=== PATIENT | male | born 1945 | race Caucasian/White ===

== ENCOUNTER 2018-07-04 17:59 | Emergency (ER) | payer BC ==
--- OUTSIDE RECORDS SUMMARY | 2018-07-04 18:04 | XMS REPORT ---
:1945 External Reference #:[id number] Author Organization [facility] Address [address] [place] [address] Phone [phone] Care Team Providers Name Role Phone Mark Baez MD Care Team Information Shaker Screen Operator Unavailable Mark Baez MD Primary Care Physician Unavailable Payers Type Date Identification Numbers Payment Provider Subscriber Commercial Effective: Policy Number: [id number] [employer] Plan Reyna Repp 2010 PayID: [id number] [address] [place] [address] Problems Description No Active Problems Family History Date Family Member(s) Problem(s) Comments Onset: (age 60 Years) Father Colon Cancer Social History Type Date Description Comments Living Situation Lives with spouse ETOH Use Rare Smoking Patient has never smoked Daily Caffeine Daily Caffeine Allergies, Adverse Reactions, Alerts Date Description Reaction Status Severity Comments 05/24/2011 NKDA active 10/17/2008 Wasps active Medications Medication Date Status Form Strength Qnty SIG Indications Ordering Provider Doxazosin 06/19/ Active Tablets 1mg 30tabs Take one N40.0 Liya C. Mesylate 2017 by mouth David, daily [employer] Finasteride 01/24/ Active Tablets 5mg 30tabs take 1 Liya C. 2016 tablet by David, mouth at [employer] bedtime Epipen 2-[place] 03/14/ Active Solution 0.3mg/0.3M 1units as Liya C. 2015 Auto-Injec L directed David t [employer] No Active 09/29/ Hx Unknown Medications 2014 - 2015 No Active 08/25/ Hx Unknown Medications 2012 - 2013 Levofloxacin 08/20/ Hx Tablets 500mg 5tabs 1 po qd 597.80 Mark Omar 2012 - Darlow, 08/25/ M.D. 2012 No Active 08/17/ Hx Unknown Medications 2012 - 2012 Levofloxacin 08/12/ Hx Tablets 500mg 5tabs 1 po qd 597.80 Mark AMigel 2012 - Darmanny, 08/17/ M.D. 2012 No Active 05/30/ Hx Unknown Medications 2010 - 2012 Amoxicillin/Cl 10/25/ Hx Tablets 500-125mg 20tabs 1 po bid 473.0 Torito willis 2010 - Anand Landeros Potassium 2010 Medrol Dosepak 10/25/ Hx Tablets 4mg 1tabs use as 473.0 Torito Nelson 2011 - directed Anand Landeros 2010 Robitussin A-C 10/03/ Hx 5Oz 1-2 tsp Leonardo Burciaga 2010 - po q4h Breiman, 10/25/ prn cough M.DMigel 2010 Fish Oil 10/17/ Hx Capsules 1000mg 1 po qd Family 2009 - Medicine 07/26/ [facility] 2010 [facility] [place] Zithromax 10/17/ Hx Tablets 250mg 6Tabs 2 po qd 466.0 Leonardo Burciaga 2008 - today , Sailaja, 10/25/ then 1 po M.D. 2010 qd times 4 Note 03/29/ Hx PT needs Miko Martinez 2004 - a ncv due Anastasiya, 10/17/ to hand M.Katja 2008 pain-r/o carpal tunnel Pen VK 12/25/ Hx Tablets 500mg 40tabs 1 qid Mark Nelson 2002 - Sasha, 01/04/ Anand 2002 Viagara 12/01/ Hx 50mg 6units 1 Tab One Miko Martinez 2002 - Half Hour Anastasiya, 10/17/ Before M.DMigel 2009 Intercour se. Caleb MD Anne 10/25/ Hx For Miko Martinez 2001 - Cardiac Anastasiya, 12/01/ Anand Parish 2002 Weight Control [email or web address] [employer] The Web Site Ibuprofen / Hx Capsules 200mg prn Unknown 0000 - 2010 Ofloxacin / Hx Solution 0.3% 2 gtts Unknown Ophthalmic 0000 - q4hrs 2014 Immunizations CPT Code Status Date Vaccine Lot # [id number] Given 09/28/2015 Pneumococcal Conjugate Vacc-13 [id number] Given 09/29/2014 Influenza Vac, Quadrivalent, Slit Virus, Im [id number] Given 06/28/2012 DO Not Use Split Influenza Virus Vaccine [id number] Given 04/19/2011 Tetanus And Diptheria Adult Preservative Free [id number] >[id number] [id number] Given 11/01/2010 Zostivax [id number] Vital Signs Date Vital Result Comment 06/19/2018 BP Systolic 144 mmHg BP Diastolic 80 mmHg Heart Rate 72 /min Respiratory Rate 16 /min Height 69.5 inches 5'9.50" Weight 229.00 lb BMI (Body Mass Index) 33.3 kg/m2 12/25/2016 BP Systolic 162 mmHg BP Diastolic 102 mmHg Heart Rate 72 /min Body Temperature 98.7 F Respiratory Rate 16 /min Height 69.5 inches 5'9.50" Weight 237.00 lb BMI (Body Mass Index) 34.5 kg/m2 06/22/2016 BP Systolic 146 mmHg BP Diastolic 88 mmHg Heart Rate 78 /min Body Temperature 97.9 F Height 69.5 inches 5'9.50" Weight 233.50 lb BMI (Body Mass Index) 34.0 kg/m2 09/28/2015 BP Systolic 144 mmHg BP Diastolic 88 mmHg Heart Rate 68 /min Body Temperature 97.5 F Respiratory Rate 18 /min Height 69.5 inches 5'9.50" Weight 236.00 lb BMI (Body Mass Index) 34.3 kg/m2 09/29/2014 BP Systolic 162 mmHg BP Diastolic 88 mmHg Heart Rate 68 /min Body Temperature 97.4 F Respiratory Rate 18 /min Height 69.5 inches 5'9.50" Weight 231.00 lb BMI (Body Mass Index) 33.6 kg/m2 01/19/2014 BP Systolic 148 mmHg BP Diastolic 82 mmHg Heart Rate 68 /min Body Temperature 98.0 F Respiratory Rate 16 /min Height 69.5 inches 5'9.50" Weight 229.50 lb BMI (Body Mass Index) 33.4 kg/m2 01/01/2014 BP Systolic 118 mmHg BP Diastolic 64 mmHg Heart Rate 72 /min Body Temperature 98.3 F Respiratory Rate 16 /min Height 69.5 inches 5'9.50" Weight 237.50 lb BMI (Body Mass Index) 34.6 kg/m2 Right Visual Acuity Distance 20/25 Left Visual Acuity Distance 20/25 08/12/2013 BP Systolic 128 mmHg BP Diastolic 84 mmHg Heart Rate 64 /min Body Temperature 97.9 F Respiratory Rate 16 /min Height 69.5 inches 5'9.50" Weight 248.00 lb BMI (Body Mass Index) 36.1 kg/m2 05/30/2011 BP Systolic 112 mmHg BP Diastolic 78 mmHg Heart Rate 64 /min Body Temperature 97.9 F Height 69.5 inches 5'9.50" Weight 250.00 lb BMI (Body Mass Index) 36.4 kg/m2 11/22/2010 BP Systolic 120 mmHg BP Diastolic 80 mmHg Heart Rate 72 /min Body Temperature 98.6 F Height 69.5 inches 5'9.50" Weight 269.00 lb BMI (Body Mass Index) 39.2 kg/m2 10/25/2010 BP Systolic 146 mmHg BP Diastolic 88 mmHg Heart Rate 78 /min Body Temperature 98.5 F Height 69.5 inches 5'9.50" Weight 278.00 lb BMI (Body Mass Index) 40.5 kg/m2 09/30/2010 BP Systolic 140 mmHg BP Diastolic 92 mmHg Heart Rate 72 /min Body Temperature 99.5 F Respiratory Rate 16 /min Height 69.5 inches 5'9.50" Weight 274.00 lb BMI (Body Mass Index) 39.9 kg/m2 07/26/2010 BP Systolic 132 mmHg BP Diastolic 84 mmHg Heart Rate 78 /min Body Temperature 98.5 F Height 69.5 inches 5'9.50" Weight 267.00 lb BMI (Body Mass Index) 38.9 kg/m2 07/12/2010 BP Systolic 152 mmHg BP Diastolic 70 mmHg Heart Rate 92 /min Body Temperature 98.6 F Respiratory Rate 16 /min Height 69.5 inches 5'9.50" Weight 271.00 lb BMI (Body Mass Index) 39.4 kg/m2 10/17/2008 BP Systolic 126 mmHg BP Diastolic 78 mmHg Heart Rate 84 /min Body Temperature 98.5 F Height 69.5 inches 5'9.50" Stated Weight 279.00 lb BMI (Body Mass Index) 40.6 kg/m2 03/15/2006 BP Systolic 108 mmHg BP Diastolic 70 mmHg Heart Rate 68 /min Weight 220.00 lb 03/28/2005 BP Systolic 100 mmHg BP Diastolic 70 mmHg Heart Rate 66 /min Weight 258.00 lb 08/04/2003 BP Systolic 120 mmHg BP Diastolic 72 mmHg Heart Rate 72 /min Weight 255.00 lb 12/24/2002 BP Systolic 106 mmHg BP Diastolic 76 mmHg Body Temperature 97.9 F Weight 232.00 lb 12/15/2002 BP Systolic 112 mmHg BP Diastolic 70 mmHg 12/01/2002 BP Systolic 92 mmHg BP Diastolic 60 mmHg Heart Rate 62 /min Weight 232.00 lb 10/25/2001 BP Systolic 132 mmHg BP Diastolic 92 mmHg Heart Rate 78 /min Weight 287.00 lb Results Test Date Test Result H/L Range Note Laboratory test finding 12/25/2016 PSA 1.3 ng/mL 0.0-4.0 Comprehensive Metabolic Prof 12/25/2016 Sodium 139 mEq/L 134-149 Potassium 4.1 mEq/L 3.6-5.5 Chloride 104 mEq/L 94-112 Carbon Dioxide 27 mEq/L 21-32 Glucose 111 mg/dL High 70-105 1 BUN 11 mg/dL 6-26 Creatinine 0.8 mg/dL 0.6-1.4 BUN/Creat Ratio 13.8 CALC 8.0-36.0 Calcium 9.0 mg/dL 8.6-10.2 Total Protein 6.9 g/dL 6.4-8.3 Albumin 4.1 g/dL 3.8-5.5 Globulin 2.8 g/dL 2.0-4.8 A/G Ratio 1.5 CALC 0.6-2.3 Alk. Phosphatase 84 U/L 22-95 Alt (SGPT) 18 U/L 7-35 Ast (Sgot) 20 U/L 5-34 Total Bilirubin 0.5 mg/dL 0.2-1.3 GFR Non- >60 ml/min/1.73m^ >=60 GFR >60 ml/min/1.73m^ >=60 BMP W/Egfr 09/28/2015 Glucose, Serum 97 mg/dL 65-99 2 BUN 12 mg/dL 8-27 2 Creatinine, Serum 0.77 mg/dL 0.76-1.27 2 eGFR If NonAfricn Am 93 mL/min/1.73 >59 2 eGFR If Africn Am 108 mL/min/1.73 >59 2 BUN/Creatinine Ratio 16 10-22 2 Sodium, Serum 141 mmol/L 134-144 2 Potassium, Serum 4.9 mmol/L 3.5-5.2 2 Chloride, Serum 99 mmol/L 97-108 2 Carbon Dioxide, Total 26 mmol/L 18-29 2 Calcium, Serum 10.1 mg/dL 8.6-10.2 2 Laboratory test 09/28/2015 Prostate-Specific Ag, Serum 0.9 ng/mL 0.0-4.0 2, 3 finding Comp Metabolic Panel 01/27/2015 Sodium 138 mmol/L 133-145 4 Potassium 4.9 mmol/L 3.5-5.0 4 Chloride 105 mmol/L 101-111 4 Co2 Carbon Dioxide 30 mmol/L 22-32 4 Anion Gap 3 mmol/L 2-11 4 Glucose 89 mg/dL 70-100 4 Blood Urea Nitrogen 16 mg/dL 6-24 4 Creatinine 0.93 mg/dL 0.67-1.17 4 BUN/Creatinine Ratio 17.2 8-20 4 Calcium 8.8 mg/dL 8.6-10.3 4 Total Protein 6.4 g/dL 6.4-8.9 4 Albumin 4.0 g/dL 3.2-5.2 4 Globulin 2.4 g/dL 2-4 4 Albumin/Globulin Ratio 1.7 1-3 4 Total Bilirubin 0.70 mg/dL 0.2-1.0 4 Alkaline Phosphatase 64 U/L 34-104 4 Alt 15 U/L 7-52 4 Ast 18 U/L 13-39 4 Egfr Non- 81.0 >60 4 Egfr 104.2 >60 4, 5 Lipid Profile (Trig/Chol/HDL) 01/27/2015 Triglycerides 47 mg/dL 4, 6 Cholesterol 155 mg/dL 4, 7 HDL Cholesterol 44.4 mg/dL 4, 8 LDL Cholesterol 101 mg/dL 4, 9 Laboratory test finding 01/27/2015 PSA Screening 0.784 ng/mL 0-4.000 4, 10 Surgical Pathology 08/18/2014 S RUN DATE: <SEE NOTE> Egfr (Calculated) 02/09/2014 Estimated GFR (CALCULATED) 12 Egfr >60 12, 13 Egfr, -Comoran >60 12, 14 Ua Reflex 02/09/2014 Microscopic, Reflex NOT INDICATED 12 Comprehensive Metabolic 02/09/2014 Glucose 101 mg/dL High 70-100 12 BUN 13 mg/dL 5-21 12 Creatinine, Serum 0.80 mg/dL 0.60-1.30 12 Sodium 141 mmol/L 136-146 12 Potassium 4.9 mmol/L 3.5-5.3 12 Chloride 105 mmol/L 98-110 12 Carbon Dioxide 32 mmol/L 20-32 12 Albumin 4.2 g/dL 3.5-4.7 12 Protein, Total 7.1 g/dL 6.4-8.3 12 Calcium 9.6 mg/dL 8.4-10.4 12 Alkaline Phosphatase 91 U/L 10-118 12 Sgot (Ast) 24 U/L 3-40 12 SGPT (Alt) 26 U/L 7-50 12 Bilirubin, Total 0.80 mg/dL 0.30-1.20 12 Lipid Panel 02/09/2014 Cholesterol, Total 174 mg/dL <200 12 Triglycerides 82 mg/dL <150 12 HDL Cholesterol 48 mg/dL 40-60 12 Chol/HDL Cholesterol 3.6 12, 15 LDL Cholesterol, Calc. 110 mg/dL 12, 16 LDL/HDL Cholesterol 2.3 12, 17 Urinalysis W/ Micro (CX) 02/09/2014 Urine Color COLORLESS Yellow 12 Urine Appearance CLEAR Clear 12 Urine Specific [place] 1.004 Low 1.005-1.030 12 Urine Leukocytes NEGATIVE Negative 12 Urine Nitrite NEGATIVE Negative 12 Urine PH 7.0 5.0-8.0 12 Urine Protein NEGATIVE mg/dL Negative 12 Urine Glucose NEGATIVE mg/dL Negative 12 Urine Ketones NEGATIVE mg/dL Negative 12 Urine Urobilinogen NORMAL mg/dL NORMALor<1 12 Urine Bilirubin NEGATIVE Negative 12 Urine Occult Blood NEGATIVE Negative 12 CBC 02/09/2014 WBC 3.6 x10E3/uL Low 4.3-10.9 12 RBC 4.88 x10E6/uL 4.70-6.20 12 Hemoglobin 16.4 g/dL 13.0-17.0 12 Hematocrit 47.2 % 39.0-50.0 12 MCV 96.7 fl 82.0-98.0 12 MCH 33.6 pg High 27.5-33.5 12 MCHC 34.7 g/dL 32.0-36.0 12 RDW 12.7 % 11.5-14.5 12 Platelet Count 249 x10E3/uL 130-400 12 MPV 10.1 fl 8.6-12.6 12 Segmented Neutrophils 54.7 % 44.0-74.0 12 Lymphocytes 30.8 % 15.0-45.0 12 Monocytes 10.3 % 2.0-13.0 12 Eosinophils 2.8 % 0.0-6.0 12 Basophils 1.4 % 0.0-2.0 12 Neutrophil Absolute 2.0 x10E3/uL 1.4-7.0 12 Lymphocytes Absolute 1.1 x10E3/uL 1.0-3.4 12 Monocyte Absolute 0.4 x10E3/uL 0.2-1.0 12 Eosinophil Absolute 0.1 x10E3/uL 0.0-0.5 12 Basophil Absolute 0.1 x10E3/uL 0.0-0.2 12 Laboratory test finding 02/09/2014 PSA, Total 0.80 ng/ml 0.00-4.00 12, 18 GC/Chlamydia Amplified Rna 08/12/2013 GC/Chlamydia Rna (SEE NOTE) 19 Ua - Micro (Fma) 08/12/2013 Appearance CLEAR Color YELLOW Glucose, Urine (Fma/CMC/CTX) NEG Bilirubin NEG Ketones NEG SP Grav 1.015 Blood NEG PH 7.5 Protein NEG Urobil 0.2 Nitrite NEG Leukocytes (Fma/CMC/Centrex) NEG Hyaline - /Lpf Granular - /Lpf WBC (Fma,Centrex) 0-1 RBC - Mucus (Fma/CBC/Centrex) - /Lpf Epith - /Lpf Bacteria - /Hpf Amorphous (Fma/CMC/Centrex) - /Lpf Crystals, Fluid (Fma/CMC/CTX) - Z#Comments - Urine Culture And 08/12/2013 Urine Culture (SEE NOTE) 20 Sensitivities CBC Auto Diff 02/23/2013 White Blood Count 4.7 10^3/uL Low 4.8-10.8 Red Blood Count 4.64 10^6/uL 4.0-5.4 Hemoglobin 15.6 g/dL 14.0-18.0 Hematocrit 45 % 42-52 Mean Corpuscular Volume 98 fL High 80-94 Mean Corpuscular Hemoglobin 34 pg High 27-31 Mean Corpuscular HGB Conc 34 g/dL 31-36 Red Cell Distribution Width 13 % 10.5-15 Platelet Count 248 10^3/uL 150-450 Mean Platelet Volume 8 um3 7.4-10.4 Abs Neutrophils 2.9 10^3/uL 1.5-7.7 Abs Lymphocytes 1.2 10^3/uL 1.0-4.8 Abs Monocytes 0.4 10^3/uL 0-0.8 Abs Eosinophils 0.1 10^3/uL 0-0.6 Abs Basophils 0 10^3/uL 0-0.2 Abs Nucleated RBC 0 10^3/uL Granulocyte % 62.0 % 38-83 Lymphocyte % 25.5 % 25-47 Monocyte % 9.3 % High 1-9 Eosinophil % 2.3 % 0-6 Basophil % 0.9 % 0-2 Nucleated Red Blood Cells % 0 Comp Metabolic Panel 02/23/2013 Sodium 138 mmol/L 133-145 Potassium 4.2 mmol/L 3.5-5.0 Chloride 107 mmol/L 101-111 Co2 Carbon Dioxide 26.0 mmol/L 22-32 Anion Gap 5.0 mmol/L 2-11 Glucose 108 mg/dL High 70-100 Blood Urea Nitrogen 17 mg/dL 6-24 Creatinine 0.80 mg/dL 0.50-1.40 BUN/Creatinine Ratio 21.3 High 8-20 Calcium 9.2 mg/dL 8.1-9.9 Total Protein 6.8 g/dL 6.2-8.1 Albumin 3.5 g/dL 3.2-5.2 Globulin 3.3 g/dL 2-4 Albumin/Globulin Ratio 1.1 1-3 Total Bilirubin 0.8 mg/dL 0.4-1.5 Alkaline Phosphatase 73 U/L 30-110 Alt 20 U/L 14-54 Ast 22 U/L 12-42 Egfr Non- 97.0 >60 Egfr 124.8 >60 21 Laboratory test finding 02/23/2013 Magnesium 2.2 mg/dL 1.7-2.6 Troponin I 0.01 ng/mL 0-0.06 22 TSH (Thyroid Stimulating Horm) 1.92 miu/mL 0.34-5.60 Surgical Pathology 08/15/2011 Surgical Pathology <SEE 23 NOTE> Lipid Panel 06/19/2011 Cholesterol, Total 187 mg/dL <200 24 Triglycerides 83 mg/dL <150 24 HDL Cholesterol 50 mg/dL 40-60 24 Chol/HDL Cholesterol 3.7 24, 25 LDL Cholesterol, Calc. 120 mg/dL 24, 26 LDL/HDL Cholesterol 2.4 24, 27 Comprehensive Metabolic 06/19/2011 Glucose 109 mg/dL High 70-100 24 BUN 17 mg/dL 5-21 24 Creatinine, Serum 0.97 mg/dL 0.60-1.30 24 Sodium 139 mmol/L 136-146 24 Potassium 4.7 mmol/L 3.5-5.3 24 Chloride 103 mmol/L 98-110 24 Carbon Dioxide 29 mmol/L 20-32 24 Albumin 4.2 g/dL 3.5-4.7 24 Protein, Total 6.8 g/dL 6.4-8.3 24 Calcium 9.3 mg/dL 8.4-10.4 24 Alkaline Phosphatase 69 U/L 10-118 24 Sgot (Ast) 23 U/L 3-40 24 SGPT (Alt) 28 U/L 7-50 24 Bilirubin, Total 0.60 mg/dL 0.30-1.20 24 Egfr (Calculated) 06/19/2011 Estimated GFR (CALCULATED) 24 Egfr >60 24, 28 Egfr, -Comoran >60 24, 29 Surgical 08/07/2006 Surgical <SEE 30 Pathology Pathology NOTE> Laboratory test 06/01/2006 [facility] [place] Labs CBC See Image finding Report Laboratory test 12/24/2002 Throat Culture POSITIVE finding CBC Electronic 12/01/2002 WBC 4.3 3.6-9.6 (Fma) Lymphocytes 25.3 % 20.5 - 51.1 Monocytes 5.8 % 1.7-9.3 Granulocytes 68.9 % 42.2 - 75.2 Lymphocytes 1.1 10^3/uL 0.7 - 4.9 Monocytes 0.2 10^3/uL 0.1 - 0.9 Granulocytes 3.0 10^3/uL 1.5 - 7.2 RBC 4.97 3.90-5.70 Hemoglobin (Fma/CMC/CTX) 16.4 g/dL 12.1 - 17.2 Hematocrit (Fma/CMC/CTX) 48.1 % 36.1 - 50.3 Mean Corpuscular Vol 96.8 82.2-97.4 Mean Corpuscular Hemaglobin 33.0 27.6-33.3 Mean Corpuscular Hemo Concen 34.1 33.0-34.8 RDW 12.5 11.6-13.7 Platelets 282. 10^3/ul 150-400 Mean Platelet Volume 7.6 7.4-10.4 Comp Metabolic ([facility]) 12/01/2002 Glucose, Serum (a/CMC/CTX) 107 mg/dL 70 -118 BUN (a/CMC/Centrex) 18 mg/dL 7-26 Creatinine (a/CMC/CTX) 0.9 mg/dL 0.6-1.4 BUN/Creatinin Ratio 21.6 8.0-36 Sodium 142 134-149 Potassium 4.3 3.6-5.5 Chloride 101 mEq/L 94-112 Co2 28 21-32 Calcium (a/CMC/Centrex) 8.6 mg/dL 8.6-10.0 Total Protein 6.9 g/dL 6.3-8.1 Albumin (a/CMCC/Centrex) 4.4 3.8-5.5 Globulin 2.5 2.0-4.8 A/G Ratio (a/CMC/Centrex) 1.8 0.6-2.2 Alkaline Phosphatase 60 U/L 22-95 Alt (SGPT) 23 10-40 Ast (Sgot) (a/CMC/Centrex) 21 U/mL 5-34 Bilirubin, Total 0.4 mg/dL 0.2-1.3 Lipid Profile ([facility]) 12/01/2002 Cholesterol 196 mg/dL 120-200 Triglyceride 88 mg/dL 30-200 HDL-Chol 44 30-70 LDL-Calculated ([facility] [place]) 134 CALC High 0-129 VLDL 18 0-50 HDL Risk Factor ([facility]) 4.4 CALC 4.2-7.0 Laboratory test finding 12/01/2002 TSH 2.40 uIU/ml 0.5-6.0 PSA 1.10 0.0-4.0 1 NON-FASTING 2 1 sst 3 Yoanna ECLIA methodology. According to the [place] [employer], Serum PSA should decrease and remain at undetectable levels after radical prostatectomy. The AUA defines biochemical recurrence as an initial PSA value 0.2 ng/mL or greater followed by a subsequent confirmatory PSA value 0.2 ng/mL or greater. Values obtained with different assay methods or kits cannot be used interchangeably. Results cannot be interpreted as absolute evidence of the presence or absence of malignant disease. 4 FASTING 2SST 5 Because ethnic data is not always readily available, this report includes an eGFR for both -Americans and non- Americans. The National Kidney Disease Education Program (NKDEP) does not endorse the use of the MDRD equation for patients that are not between the ages of 18 and 70, are , have extremes of body size, muscle mass, or nutritional status, or are non- or non-. According to the National Kidney Foundation, irrespective of diagnosis, the stage of the disease is based on the level of kidney function: Stage Description GFR(mL/min/1.73 m(2)) 1 Kidney damage with normal or decreased GFR 90 2 Kidney damage with mild decrease in GFR 60-89 3 Moderate decrease in GFR 30-59 4 Severe decrease in GFR 15-29 5 Kidney failure <15 (or dialysis) 6 Desirable <150 Borderline high 150-199 High 200-499 Very High >500 7 Desirable <200 Borderline high 200-239 High >239 8 Low <40 Desirable: 40-60 High: >60 9 Desirable: <100 mg/dL Near Optimal: 100-129 mg/dL Borderline High: 130-159 mg/dL High: 160-189 mg/dL Very High: >189 mg/dL 10 Serum levels of PSA measured using the Juan R Don[employer] DXI Hybritech immunoassay should not be interpreted as absolute evidence of the presence or absence of disease. The PSA value should be used in conjunction with other pertinent clinical diagnostic procedures. The values obtained with different assay methods or kits cannot be used interchangeably. 11 RUN DATE: 08/19/14 [facility] LAB LIVE PAGE 1 RUN TIME: [address] [place], [place] [address] Specimen Inquiry Name: WINNIE GONCALVES : [address]: Mono Hensley MD Acct: [id number] Unit: [id number] AGE: 69 Location: ENDO Re08/18/14 SEX: M Status: REG REF SPEC: [id number] BILLY: 08/18/14-1005 [facility] DR: Mono Hensley MD REQ: [id number] RECD: 08/18/14-115 STATUS: ELI VILLATORO DR: Mark Baez MD _ ORDERED: LEVEL IV FINAL DIAGNOSIS Colon, sigmoid, biopsy: -- Tubular adenoma. -- No high grade dysplasia or malignancy. CLINICAL HISTORY Screening colonoscopy with personal history of colon polyps. Bowel habit - twice a day with no blood. Follow-up for polyps POST-OPERATIVE DIAGNOSIS Screening colonoscopy to cecum with twirly right colon, entered with deep breath at approximately 35 cm. - 5 mm. polyp. Left colon polyp, positive family history - 5 years GROSS DESCRIPTION The specimen is received in formalin labeled, Sigmoid Polyp, and consists of two bolton polypoid soft tissue fragments averaging 0.3 x 0.2 x 0.2 cm, which are submitted entirely in one cassette. Signed (signature on file) Bekah Pelayo MD [id number] END OF REPORT * ML=Testing performed at Main Lab DEPARTMENT OF PATHOLOGY, [address] [place] [address] Hu Grant M.D. Director [facility] # [id number] 12 1 SST; 1 LAV; 1 STERILE CUP OF URINE 13 >59 mL/min/1.73m2 14 >59 mL/min/1.73m2 Note: Persistent reduction for 3 months or more in an eGFR <60 mL/min/1.73m2 defines CKD. Patients with eGFR values >=60 mL/min/1.73m2 may also have CKD if evidence of persistent proteinuria is present. Additional information may be found at www.kidney.org/professionals/kdoqi. 15 CHOL/HDL Risk Ratio Levels MALE FEMALE 1/2 X Average 3.4 3.3 Average 5.0 4.4 2 X Average 9.5 7.0 3 X Average 24.0 11.0 16 Optimal under 100 mg/dl Near or above Optimal 100 - 129 mg/dl Borderline High 130 - 159 mg/dl High 160 - 189 mg/dl Very High above 190 mg/dl 17 LDL/HDL Risk Ratio Levels MALE FEMALE 1/2 X Average 1.0 1.5 Average 3.6 3.2 2 X Average 6.3 5.0 3 X Average 8.0 6.1 18 . Serum PSA results should be used only in conjunction with information available from the clinical evaluation of the patient and other diagnostic procedures. Values obtained with different assay methods or kits cannot be used interchangeably. Results obtained using [employer] ICMA methodology. 19 RUN DATE: 08/14/13 [facility] LAB LIVE PAGE 1 RUN TIME: [address] [place] [address] Specimen Inquiry Name: WINNIE GONCALVES : [address]: Mark Baez MD Acct: [id number] Unit: [id number] AGE: 68 Location: [facility] Re08/12/13 SEX: M Status: REG REF SPEC: [id number] BILLY: 08/12/[address] [facility] [address]: Mark Baez MD REQ: [id number] RECD: 08/12/13 STATUS: COMP _ SOURCE: URINE SPDESC: ORDERED: Urine Culture, GC/Chlam RNA COMMENTS: 1POUR OFF URINE IN BORITEX TUBE 1URINE IN STERILE CONTAINER QUERIES: [facility] Number [id number] Procedure Result Verified Site Urine Culture Final 08/14/13- 1035 ML No Growth Day 2 (<1,000 CFU/mL) Chlamydia Trachomatis RNA Final 08/14/13- 1521 ML NEGATIVE for Chlamydia trachomatis rRNA GC (N. gonorrhoeae) RNA Final 08/14/13- 1515 ML NEGATIVE for Neisseria gonorrhoeae rRNA A negative result does not preclude the presence of a C. trachomatis or N. gonorrhoeae infection because results are dependent on adequate specimen collection, absence of inhibitors, and sufficient rRNA to be detected. Test results may be affected by improper specimen collection, improper storage, technical error, or specimen mixup. Limitations of the Procedure: The Aptima Combo 2 Assay is not intended for the evaluation of suspected sexual abuse or for other medico-legal indications. For those patients for whom a false positive result may have adverse psychosocial impact, the [facility] recommends retesting by a method using an alternate technology. Therapeutic failure or success cannot be determined with the Aptima Combo 2 Assay since nucleic acid may persist following appropriate antimicrobial therapy. CONTINUED ON NEXT PAGE * ML=Testing performed at Main Lab DEPARTMENT OF PATHOLOGY, [facility] [employer] [place] [address] Hu Grant M.D. Director [facility] Permit #[id number] RUN DATE: 08/14/13 [facility] LAB LIVE PAGE 2 RUN TIME: 152 [facility] [employer] [place], [place] [address] Specimen Inquiry Patient: WINNIE GONCALVES [id number] (Continued) Specimen: [id number] Collected: 08/12/13 Received: 08/12/13 (Continued) Procedure Result Verified Site GC (N. gonorrhoeae) RNA Final (continued) 08/14/13- 151 Results from the Aptima Combo 2 Assay should be interpreted in conjunction with other laboratory and clinical data available to the clinican. Performance characteristics for detecting C. trachomatis and N. gonorrhoeae are derived from high prevalence populations. Positive results in low prevalence populations should be interpreted carefully with the understanding that the likelihood of a false positive may be higher than a true positive. END OF REPORT * ML=Testing performed at Main Lab DEPARTMENT OF PATHOLOGY, [facility] [employer] [place], [place] [address] Hu Grant M.D. Director [facility] Permit #[id number] RUN DATE: 08/14/13 [facility] LAB LIVE PAGE 1 RUN TIME: 1035 [facility] [employer] [place], [place] [address] Specimen Inquiry Name: WINNIE GONCALVES : [address]: Mark Baez MD Acct: [id number] Unit: [id number] AGE: 68 Location: [facility] Re08/12/13 SEX: M Status: REG REF SPEC: [id number] BILLY: 08/12/13-[address] [facility] [address]: Mark Baez MD REQ: [id number] RECD: 08/12/13 STATUS: RES _ SOURCE: URINE SPDESC: ORDERED: Urine Culture, GC/Chlam RNA COMMENTS: 1POUR OFF URINE IN BORITEX TUBE 1URINE IN STERILE CONTAINER QUERIES: [employer] Number [id number] Procedure Result Verified Site Urine Culture Final 08/14/13- 1035 ML No Growth Day 2 (<1,000 CFU/mL) Chlamydia Trachomatis RNA PENDING GC (N. gonorrhoeae) RNA PENDING END OF REPORT * ML=Testing performed at Main Lab DEPARTMENT OF PATHOLOGY, [address] [place] [address] Hu Grant M.D. Director [facility] Permit #[id number] 21 Because ethnic data is not always readily available, this report includes an eGFR for both -Americans and non- Americans. The National Kidney Disease Education Program (NKDEP) does not endorse the use of the MDRD equation for patients that are not between the ages of 18 and 70, are , have extremes of body size, muscle mass, or nutritional status, or are non- or non-. According to the National Kidney Foundation, irrespective of diagnosis, the stage of the disease is based on the level of kidney function: Stage Description GFR(mL/min/1.73 m(2)) 1 Kidney damage with normal or decreased GFR 90 2 Kidney damage with mild decrease in GFR 60-89 3 Moderate decrease in GFR 30-59 4 Severe decrease in GFR 15-29 5 Kidney failure <15 (or dialysis) 22 Reference Range and Interpretation: TnI (ng/mL) Interpretation Less Than 0.06 ng/mL Not supportive of diagnosis of [place] 0.06 - 0.50 ng/mL Indeterminate: suggest serial studies if clinically indicated. Greater than 0.5 ng/mL Consistent with diagnosis of [place] 23 ---- RUN DATE: 08/16/11 [facility] NMI LIVE PAGE 1 RUN TIME: 1351 Specimen Inquiry RUN USER: INTERFACE -- Name: WINNIE GONCALVES [facility]#: [id number] Status: REG REF Re08/15/11 Age/Sex: 66/M Unit#: [id number] Location: [facility]. : 49 -- Specimen: [id number] SOUT Spec Date: 08/15/[address]: Mono armando MD Spec Type: SURGICAL P Received: 08/15/11-7490 Copies to: Torito sheth MD SPECIMEN 1) DESCENDING COLON POLYPS 2) HEPATIC FLEXURE BIOPSY HISTORY POST-OP DIAGNOSIS: Colon polyps. CLINICAL INFORMATION: History of polyps. GROSS DESCRIPTION 1) The specimen is received in formalin labelled Winnie Goncalves, Descending Colon Polyps, and consists of two fragments of yellow tissue measuring in aggregate 0.5 x 0.5 x 0.3 cm. Submitted entirely, one cassette labelled 1. 2) The specimen is received in formalin labelled Winnie Goncalves, Hepatic Flexure Biopsy, and consists of several fragments of brown tissue measuring in aggregate 0.5 x 0.6 x 0.3 cm. Submitted entirely, one cassette labelled 2. DIAGNOSIS 1) Descending colon, polyps, biopsy: A. Tubular adenoma. B. No high grade dysplasia or malignancy. 2) Hepatic flexure, biopsy: A. Hyperplastic polyp. B. Separate fragment of tubular adenoma. C. No high grade dysplasia or malignancy. Signed Electronically by: SATISH MCCABE 08/16/11 0030 -- -- DEPARTMENT OF PATHOLOGY, [address] [place] [address] [facility] Permit #[id number] Hu Grant M.D. Director Satish Mccabe M.D. Solution Mixer Dir naresh -- 24 FASTING; 1 sst 25 CHOL/HDL Risk Ratio Levels MALE FEMALE 1/2 X Average 3.4 3.3 Average 5.0 4.4 2 X Average 9.5 7.0 3 X Average 24.0 11.0 26 Optimal under 100 mg/dl Near or above Optimal 100 - 129 mg/dl Borderline High 130 - 159 mg/dl High 160 - 189 mg/dl Very High above 190 mg/dl 27 LDL/HDL Risk Ratio Levels MALE FEMALE 1/2 X Average 1.0 1.5 Average 3.6 3.2 2 X Average 6.3 5.0 3 X Average 8.0 6.1 28 >59 mL/min/1.73m2 29 >59 mL/min/1.73m2 Note: Persistent reduction for 3 months or more in an eGFR <60 mL/min/1.73m2 defines CKD. Patients with eGFR values >=60 mL/min/1.73m2 may also have CKD if evidence of persistent proteinuria is present. Additional information may be found at www.kidney.org/professionals/kdoqi. 30 ---- RUN DATE: 08/08/06 [facility] NMI LIVE PAGE 1 RUN TIME: 1328 Specimen Inquiry RUN USER: INTERFACE [id number] WINNIE GONCALVES 61/M <REG REF 08/07> ([id number]) RADHA Hensley MD., Mono -- Specimen: [id number] SOUT Spec Date: 08/07/[address]: Mono armando MD. Spec Type: SURGICAL P Received: 08/07/06-1129 Copies to: Miko Langford MD. SPECIMEN RECTAL POLYP AT 10 CM. HISTORY CLINICAL INFORMATION: Patient with positive family history (father had co ramsey carcinoma - 69) for screening colonoscopy GROSS DESCRIPTION The specimen is received in formalin labelled "Winnie Goncalves, Polyp 10 cm." and consists of a polypoid, bolton, soft tissue fragment measuring 0.5 x 0.5 x 0.5 cm. Submitted entirely, one cassette. DIAGNOSIS Colon, polyp at 10- cm., biopsy - A) Tubular adenoma. B) No high grade dysplasia or malignancy. Signed Electronically signed HU GRANT MD 08/08/06 -- -- DEPARTMENT OF PATHOLOGY, [address] [place] [address] [facility] Permit #[id number] Wily Pretty II, M.D. Director Anand Herrera irector -- Procedures Date CPT Code Description Status Comment 07/25/2014 Colonoscopy Completed tubular adenoma - follow-up 201801/28/2014 00385 Ultrasound Exam AAA diagnostic Completed 08/15/2011 Colonoscopy Completed 07/12/2010 76729 Destruction-1 Beign Lesion Completed 08/07/2006 Colonoscopy Completed 03/15/2006 92144 Destruction-1 Beign Lesion Completed 12/15/2002 67412 Remove Skin Tags Up To 15 Completed Encounters Type Date Location Provider CPT E/M Dx Office Visit 12/25/2016 1:50p [facility] Mark Baez M.D. 75090 N40.0 Office Visit 06/22/2016 10:15a [facility] Reyna Jama, BRENNA 98253 S91.332A W27.1xxA Office Visit 09/28/2015 10:00a [facility] Mark Baez M.D. 55820 R35.8 Z23 L98.9 Office Visit 09/29/2014 8:00a [facility] Mark Baez M.D. 36424 V70.0 V04.81 Office Visit 01/19/2014 10:50a [facility] Torito Landeros M.D. 54051 278.00 V76.44 V76.51 V81.2 Office Visit 01/01/2014 8:00a [facility] Reyna JamaBRENNA 65337 372.30 Office Visit 08/12/2013 11:20a [facility] Mark Baez M.D. 29001 597.80 Office Visit 05/30/2011 10:00a [facility] Torito Landeros M.D. 19163 278.00 Office Visit 11/22/2010 10:10a [facility] Torito Landeros M.D. 47460 278.00 796.9 Office Visit 10/25/2010 8:20a [facility] Torito Landeros M.D. 13051 473.0 796.9 Office Visit 09/30/2010 10:00a Main Office Leonardo Menard M.D. 10491 466.0 Office Visit 07/26/2010 9:40a [facility] Torito Landeros M.D. 78684 709.9 278.00 Office Visit 07/12/2010 1:40p [facility] Torito Landeros M.D. 16749 709.9 Office Visit 10/17/2008 10:45a Main Office GABRIEL Yadav 89359 466.0 Office Visit 12/24/2002 2:45p Main Office Dolores Doe 32008 V01.7 Office Visit 12/01/2002 10:20a [facility] Miko Langford M.D. 18749 V70.0 783.21 607.84 V71.1 Office Visit 10/25/2001 2:20p Main Office Miko Langford M.D. 80031 Plan of Care Future Appointment(s):12/17/2018 9:00 am - Mark Baez M.D. at [facility] Gzgviz6206/19/2018 - Liya Hernandez, NPN40.0 Benign prostatic hyperplasia without lower urinry tract sympNew Medication:Doxazosin Mesylate 1 mgComments: Restart your finasteride and start the new medication as well. If you are not seeing some improvement within a few weeks, come back and I can move up your dose of doxazosin.Z88.9 Allergy status to [facility] drug/meds/biol subst statusComments:Replace your epipens with new ones!AllComments:1. Patient has been queried about patient's goals/preferences and functional/lifestyle goals at relevant visits. If relevant, describe: Has been discussed, noted above2. Treatment goals as explainedto the patient: see above3. Are there barriers to meeting treatment goals? Yes If Yes, please describe: Barriers include possible insurance limits, disease process, and difficulty with lifestyle changes4. Self-Management goals as described to the patient: Yes, see above As always, we strongly encourage a healthy diet and making physical activity a part of your every day life. If you have questions about how or where to start, please contact the office.
[2018-07-04 18:07] VITALS: BP 167/102
--- NOTE | 2018-07-04 19:01 | UC ---
Bite Injury/Animal HPI - HPI Summary HPI Summary: tick bite noticed back of L arm today. not engorged,area has some redness. not painful. denies joint pain - History of Current Complaint Chief Complaint: NAVINkin Stated Complaint: TICK BITE Time Seen by Provider: 07/04/18 18:43 Hx Obtained From: Patient Pain Intensity: 0 Associated Signs And Symptoms: Positive: Erythema - Allergies/Home Medications Allergies/Adverse Reactions: Allergies Allergy/AdvReac Type Severity Reaction Status Date / Time WASP STING Allergy Severe Swelling Uncoded 07/04/18 18:07 Home Medications: Home Medications Finasteride TAB* [Proscar TAB*] 1 tab PO DAILY 07/04/18 [History Confirmed 07/04] Prostate Med* 07/04/18 [History] PMH/Surg Hx/FS Hx/Imm Hx Previously Healthy: Yes - Surgical History Surgical History: Yes Surgery Procedure, Year, and Place: hernia repair x 2, torn meniscus left knee - Family History Known Family History: Positive: Other - noncontributary - Social History Alcohol Use: Rare Substance Use Type: None Smoking Status (MU): Never Smoked Tobacco - Immunization History Vaccination Up to Date: No Immunizations Comment: flu shot pending w/ pcp Review of Systems Respiratory: Negative Cardiovascular: Negative - denies chest pain, headache Musculoskeletal: Negative All Other Systems Reviewed And Are Negative: Yes Physical Exam Triage Information Reviewed: Yes Appearance: Well-Appearing Vital Signs: Initial Vital Signs Temp 96.8 F 07/04/18 18:02 Pulse 93 07/04/18 18:02 Resp 16 07/04/18 18:02 BP 167/102 07/04/18 18:02 Pulse Ox 99 07/04/18 18:02 Vital Signs Reviewed: Yes Respiratory: Positive: Lungs clear, No respiratory distress Cardiovascular: Positive: RRR, No Murmur Musculoskeletal: Positive: Other: - No joint swelling in L arm Neurological: Positive: Alert Skin: Positive: significant lesion(s) - approx 5 cm area of redness around an imbedded tick, intact no engorgement. nontender area. Bite Injury Course/Dx - Course Course Of Treatment: <36hrs of tick bite, not engorged, no joint pain. pt requesting one time dose of doxy. bp recheck 156/96, asymptomatic. will be following up w/ pcp re: bp. - Differential Dx/Diagnosis Differential Diagnosis/HQI/PQRI: Cellulitis, Envenomation, Superficial Infection Provider Diagnoses: tickc bite <36hrs; elevated blood pressure without a dx of htn Discharge - Sign-Out/Discharge Documenting (check all that apply): Patient Departure All imaging exams completed and their final reports reviewed: No Studies - Discharge Plan Condition: Good Disposition: HOME Patient Education Materials: Tick Bite (ED) Referrals: Mark Baez MD [Primary Care Provider] - Additional Instructions: If symptoms worsen please follow up at urgent care. Follow up with your pcp with your blood pressure as well. - Billing Disposition and Condition Condition: GOOD Disposition: Home - Attestation Statements Provider Attestation: I was available for consult. This patient was seen by the C[facility]. The patient was not presented to, seen by, or examined by me. -Armin
[2018-07-04] MEDS ORDERED: DOXYcycline CAP(*) 100 MG PO ONE (19:06)
[2018-07-04] MEDS ORDERED: DOXYcycline CAP(*) 100 MG PO SCH (21:00)
== END 2018-07-04 19:30 | disposition home or self-care (01) ==
LOC: UCEAST 17:59
DX: S40.862A Insect bite (nonvenomous) of left upper arm, initial encounter (principal); W57.XXXA Bitten or stung by nonvenomous insect and other nonvenomous arthropods, initial encounter; Y92.9 Unspecified place or not applicable; Z91.030 Bee allergy status
CPT/HCPCS: 99212; A9270-GY; G0463

== ENCOUNTER 2023-11-07 06:10 | Inpatient (IN) ==
[2023-11-07] MEDS: NS 0.9% 1000 ml BAG 1,000 ML IV ONE (06:52)
[2023-11-07 07:16] LABS: INR 1.36 (0.83-1.13)
[2023-11-07 07:17] LABS: ABS Lymphocytes 0.4 10^3/uL (1.0-4.8); ABS Monocytes 0.8 10^3/uL (0.0-1.1); ABS Neutrophils 6.5 10^3/uL (1.5-7.6); Hematocrit 41.1 % (38-53); Hemoglobin 14.3 g/dL (13.2-16.3); Lymphocyte % 5.7 %; Mean Corpuscular Hemoglobin 34.3 pg (27-33); Mean Corpuscular Hgb Conc 34.9 g/dL (31-36); Mean Corpuscular Volume 98.3 fL (80-97); Mean Platelet Volume 8.2 fL (7.5-11.2); Platelet Count 195 10^3/uL (150-450); Red Blood Count 4.18 10^6/uL (4.06-5.63); Red Cell Distribution Width 13.8 % (12-17); White Blood Count 7.8 10^3/uL (3.6-10.2)
[2023-11-07 07:25] LABS: Albumin 3.7 g/dL (3.2-5.2); Albumin/Globulin Ratio 1.3 (1-3); Calcium 8.6 mg/dL (8.6-10.3); Creatinine, Serum 0.82 mg/dL (0.67-1.17); Globulin 2.9 g/dL (2-4); Potassium 3.7 mmol/L (3.5-5.0); Total Bilirubin 1.1 mg/dL (0.2-1.0); Total Protein 6.6 g/dL (6.4-8.9)
[2023-11-07 08:09] LABS: Urine Appearance Clear; Urine Bilirubin Negative (Negative); Urine Blood Negative (Negative); Urine Color Yellow; Urine Glucose Negative (Negative); Urine Ketones Negative (Negative); Urine Nitrite Negative (Negative); Urine Protein Trace (Negative); Urine Specific Gravity 1.017 (1.002-1.030); Urine Urobilinogen Negative (Negative); Urine pH 6.5 (5.0-8.0)
[2023-11-07] MEDS: Digoxin IV 0.5 MG/2 ML AMP (0.25 MG/ML) IV SLOW PU ONE (08:15)
[2023-11-07 08:47] LABS: High Sensitivity Troponin 1 Hr 6 pg/mL (<20)
[2023-11-07] MEDS: Potassium Chloride LIQUID 20 MEQ/15 ML LIQUID PO ONE (09:53)
[2023-11-07] MEDS: Lactated Ringers 1000 ml BAG 1,000 ML IV ONE (12:54)
[2023-11-07] MEDS: fentaNYL 100 mcg/2 ml 50 MCG/ML VIAL IV SLOW PU ONE (12:54)
[2023-11-07] MEDS: Midazolam 10 mg/10 ml VIAL 1 mg/ml 10 ml VIAL (10 mg) IV SLOW PU ONE (12:55)
[2023-11-08] MEDS: Digoxin IV 0.5 MG/2 ML AMP (0.25 MG/ML) IV SLOW PU SCH (00:23)
[2023-11-08 05:36] LABS: ABS Lymphocytes 0.6 10^3/uL (1.0-4.8); ABS Monocytes 0.6 10^3/uL (0.0-1.1); ABS Neutrophils 2.9 10^3/uL (1.5-7.6); ABS Nucleated RBC 0.01 10^3/ul; Eosinophil % 0.7 %; Hematocrit 37.3 % (38-53); Hemoglobin 12.9 g/dL (13.2-16.3); Mean Corpuscular Hgb Conc 34.5 g/dL (31-36); Mean Corpuscular Volume 98.5 fL (80-97); Mean Platelet Volume 7.9 fL (7.5-11.2); Nucleated Red Blood Cells % 0.2 %/100WBC (0.0-0.8); Platelet Count 170 10^3/uL (150-450); Red Blood Count 3.78 10^6/uL (4.06-5.63); Red Cell Distribution Width 13.7 % (12-17); White Blood Count 4.2 10^3/uL (3.6-10.2)
[2023-11-08 06:14] LABS: TSH Ultra Thyroid Stim Horm 2.5 mcIU/mL (0.34-5.60)
[2023-11-08 06:24] LABS: Calcium 8.2 mg/dL (8.6-10.3); Creatinine, Serum 0.76 mg/dL (0.67-1.17); Phosphorus 1.9 mg/dL (2.5-5.0); eGFR CKD-EPI 93.2 (>60)
[2023-11-08] MEDS: Naloxone 0.4 mg VIAL 0.4 mg/ml 1 ml VIAL IV PUSH ONE (07:07)
[2023-11-08] MEDS: NS 0.9% IV ONE (09:44)
[2023-11-08] MEDS: SODIUM PHOSPHATE IV ONE (09:44)
[2023-11-09 04:51] LABS: ABS Lymphocytes 0.9 10^3/uL (1.0-4.8); ABS Monocytes 0.6 10^3/uL (0.0-1.1); ABS Neutrophils 2.6 10^3/uL (1.5-7.6); Eosinophil % 1.1 %; Hematocrit 38.9 % (38-53); Hemoglobin 13.4 g/dL (13.2-16.3); Lymphocyte % 21.3 %; Mean Corpuscular Hgb Conc 34.5 g/dL (31-36); Mean Corpuscular Volume 98.5 fL (80-97); Mean Platelet Volume 7.9 fL (7.5-11.2); Nucleated Red Blood Cells % 0.1 %/100WBC (0.0-0.8); Platelet Count 188 10^3/uL (150-450); Red Blood Count 3.95 10^6/uL (4.06-5.63); Red Cell Distribution Width 13.7 % (12-17); White Blood Count 4.1 10^3/uL (3.6-10.2)
[2023-11-09 05:09] LABS: Calcium 8.2 mg/dL (8.6-10.3); Creatinine, Serum 0.7 mg/dL (0.67-1.17); Magnesium 1.9 mg/dL (1.9-2.7); Phosphorus 2.6 mg/dL (2.5-5.0); Potassium 3.7 mmol/L (3.5-5.0); eGFR CKD-EPI 95.5 (>60)
[2023-11-09] MEDS: dilTIAZem 30 MG TAB PO SCH (11:41)
[2023-11-09] MEDS: Potassium Chlor 20 meq TAB.ER PO ONE (12:29)
[2023-11-09] MEDS ORDERED: Naloxone 0.4 mg VIAL 0.4 mg/ml 1 ml VIAL ONE (14:37)
[2023-11-09] MEDS ORDERED: fentaNYL 100 mcg/2 ml 50 MCG/ML VIAL ONE (14:37)
[2023-11-09] MEDS ORDERED: Midazolam 5 mg/5 ml VIAL 1 mg/ml 5 ml VIAL (5 mg) ONE (14:37)
[2023-11-09] MEDS ORDERED: Flumazenil 0.5 mg/5 ml 0.1 MG/ML 5 ml VIAL ONE (14:37)
[2023-11-09] MEDS: fentaNYL 100 mcg/2 ml 50 MCG/ML VIAL IV SLOW PU ONE (18:02)
[2023-11-09] MEDS: Midazolam 10 mg/10 ml VIAL 1 mg/ml 10 ml VIAL (10 mg) IV SLOW PU ONE (18:02)
[2023-11-10 05:04] LABS: ABS Eosinophils 0.1 10^3/uL (0.0-0.5); ABS Lymphocytes 0.7 10^3/uL (1.0-4.8); ABS Monocytes 0.5 10^3/uL (0.0-1.1); ABS Neutrophils 2.5 10^3/uL (1.5-7.6); Eosinophil % 1.9 %; Hematocrit 40.3 % (38-53); Hemoglobin 14.2 g/dL (13.2-16.3); Lymphocyte % 18.8 %; Mean Corpuscular Hemoglobin 34.3 pg (27-33); Mean Corpuscular Hgb Conc 35.3 g/dL (31-36); Mean Corpuscular Volume 97.2 fL (80-97); Mean Platelet Volume 7.7 fL (7.5-11.2); Nucleated Red Blood Cells % 0.1 %/100WBC (0.0-0.8); Platelet Count 230 10^3/uL (150-450); Red Blood Count 4.15 10^6/uL (4.06-5.63); Red Cell Distribution Width 13.6 % (12-17); White Blood Count 3.8 10^3/uL (3.6-10.2)
[2023-11-10 05:20] LABS: Calcium 8.4 mg/dL (8.6-10.3); Creatinine, Serum 0.68 mg/dL (0.67-1.17); Magnesium 1.9 mg/dL (1.9-2.7); Phosphorus 2.6 mg/dL (2.5-5.0); Potassium 3.9 mmol/L (3.5-5.0); eGFR CKD-EPI 96.3 (>60)
[2023-11-10] MEDS: Magnesium Sulfate 2 gm BAG 2 GM/50 ML BAG IVPB ONE (08:06)
[2023-11-10] MEDS: Potassium Chlor 20 meq TAB.ER PO ONE ×2 (08:10→17:32)
[2023-11-11 04:48] LABS: Calcium 8.4 mg/dL (8.6-10.3); Creatinine, Serum 0.72 mg/dL (0.67-1.17); Magnesium 2.2 mg/dL (1.9-2.7); eGFR CKD-EPI 94.7 (>60)
[2023-11-11] MEDS: Potassium Chlor 20 meq TAB.ER PO ONE (08:08)
[2023-11-12] MEDS: Metoprolol Tartrate 5 mg VIAL 5 ml VIAL (1 mg/ml) IV PRN (08:10)
[2023-11-12] MEDS: Metoprolol Tartrate 5 mg VIAL 5 ml VIAL (1 mg/ml) IV ONE (15:33)
[2023-11-13 09:01] VITALS: BP 127/87
== END 2023-11-13 13:40 | disposition home or self-care (01) | DRG 177 ==
LOC: ED 06:10 → SUATTDRO 20:27 → EDHOLD 20:27 → ICU 11-08 02:09 → MEDTELE 11-12 14:25
PROVIDERS: ADMIT Internal Medicine Pulmonary Disease; ATTEND Internal Medicine
PROC: CARDVER (ICD-10-PCS; 2023-11-09 14:15)